=== PATIENT | male | born 1970 | race Two or more races ===

== ENCOUNTER 2019-05-10 11:08 | Emergency (ER) | payer OTHER ==
[~2019-05-10] VITALS: Ht 182.9 cm; Wt 100.2 kg
[2019-05-10] MEDS ORDERED: VENTOLIN HFA18 GM IH (11:30)
== END 2019-05-10 13:27 | disposition home or self-care (01) ==
LOC: ER 11:08
DX: M51.36 Other intervertebral disc degeneration, lumbar region (principal)